=== PATIENT | male | born 1975 | race Caucasian/White ===

== ENCOUNTER 2018-11-05 11:03 | Emergency (ER) | payer BC ==
[2018-11-05 11:13] VITALS: BMI 25.0
[2018-11-05] MEDS ORDERED: ACETAMINOPHEN 1000 MG/100 ML VIAL (NON FORMULARY) IVPB ONE (11:45)
--- NOTE | 2018-11-05 11:55 | PDOC ---
History of Present Illness - General Chief Complaint: Respiratory Stated Complaint: CHEST PAIN Time Seen by Provider: 11/05/18 11:34 History Source: Patient Exam Limitations: Clinical Condition - History of Present Illness Initial Comments: 11/05/18 11:49 Patient with no significant past medication present with complaint of point tenderness to left lower breast area which has been persistent since yesterday and has not improved with Motrin. Patient reported having cough, runny nose and nasal congestion 5 days ago. Patient reported increased pain to left chest area with cough or deep breathing. Patient reported he feels he might have had a flu 3 days ago. Patient denies nausea, vomiting, headache, radiation of pain, dizziness, sweats, fever or chills. Patient denies any other symptoms Timing/Duration: 24 hours Past History - Past Medical History Allergies/Adverse Reactions: Allergies Allergy/AdvReac Type Severity Reaction Status Date / Time No Known Allergies Allergy Verified 11/05/18 11:08 Home Medications: Ambulatory Orders Benzonatate [Tessalon Pearls -] 100 mg PO TID PRN #21 capsule 11/05/18 Ipratropium Neches 2 spray NS BID PRN #1 spray 11/05/18 Prednisone [Deltasone] 20 mg PO BID 4 Days #8 tablet 11/05/18 COPD: No - Suicide/Smoking/Psychosocial Hx Smoking History: Never smoked Hx Alcohol Use: No Drug/Substance Use Hx: No Review of Systems - Review of Systems Able to Perform ROS?: Yes Is the patient limited Spanish proficient: No Constitutional: No: Chills, Fever, Malaise, Weakness HEENTM: Yes: Symptoms Reported, See HPI, Nose Congestion. No: Eye Pain, Blurred Vision, Tearing, Recent change in vision, Double Vision, Cataracts, Ear Pain, Ocular Prothesis, Ear Discharge, Nose Pain, Tinnitus, Nose Bleeding, Hearing Loss, Throat Pain, Throat Swelling, Mouth Pain, Dental Problems, Difficulty Swallowing, Mouth Swelling, Other Respiratory: Yes: Symptoms reported, See HPI, Cough (intermittent). No: Orthopnea, Shortness of Breath, SOB with Exertion, SOB at Rest, Stridor, Wheezing, Productive cough, Hemoptysis, Other Cardiac (ROS): Yes: Symptoms Reported, See HPI, Chest Pain (point tenderness to touch to left below breastline). No: Edema, Irregular Heart Rate, Lightheadedness, Palpitations, Syncope, Chest Tightness, Other ABD/GI: No: Symptoms Reported, See HPI, Abdominal Distended, Abd. Pain w/ defecation, Blood Streaked Bowels, Constipated, Diarrhea, Difficulty Swallowing , Nausea, Poor Appetite, Poor Fluid Intake, Rectal Bleeding, Vomiting, Indigestion, Abdominal cramping, Tarry Stools, Other Neurological: No: Headache, Dizziness All Other Systems: Reviewed and Negative *Physical Exam - Vital Signs Last Vital Signs Temp Pulse Resp BP Pulse Ox 98.5 F 65 18 140/71 99 11/05/18 11:08 11/05/18 11:08 11/05/18 11:08 11/05/18 11:08 11/05/18 11:08 - Physical Exam Comments: 11/05/18 11:52 GENERAL: Well developed, well nourished. Awake and alert. No acute distress. HEENT: Normocephalic, atraumatic. PERRLA, EOMI. No conjunctival pallor. Sclera are non-icteric. Moist mucous membranes. Oropharynx is clear. NECK: Supple. Full ROM. CARDIOVASCULAR: moderate point tenderness to left intercostal space. Regular rate and rhythm. No murmurs, rubs, or gallops. Distal pulses are 2+ and symmetric. PULMONARY: No evidence of respiratory distress. Lungs clear to auscultation bilaterally. No wheezing, rales or rhonchi. ABDOMINAL: Soft. Non-tender. Non-distended. No rebound or guarding. No organomegaly. Normoactive bowel sounds. MUSCULOSKELETAL : moderate point tenderness to left intercostal space Normal range of motion at all joints. EXTREMITIES: No cyanosis. No clubbing. No edema. No calf tenderness. SKIN: Warm and dry. Normal capillary refill. No rashes. No jaundice. NEUROLOGICAL: Alert, awake, appropriate. Gait is normal without ataxia. PSYCHIATRIC: Cooperative. Good eye contact. Appropriate mood General Appearance: Yes: Nourished, Appropriately Dressed. No: Apparent Distress Moderate Sedation - Procedure Monitoring Vital Signs: Procedure Monitoring Vital Signs Temperature 98.5 F 11/05/18 11:08 Pulse Rate 65 11/05/18 11:08 Respiratory Rate 18 11/05/18 11:08 Blood Pressure 140/71 11/05/18 11:08 O2 Sat by Pulse Oximetry (%) 99 11/05/18 11:08 ED Treatment Course - LABORATORY CBC & Chemistry Diagram: 11/05/18 12:40 11/05/18 12:40 - RADIOLOGY Radiology Studies Ordered: Category Date Time Status CHEST PA & LAT [RAD] Stat Radiology 11/05/18 11:45 Ordered Medical Decision Making - Medical Decision Making 11/05/18 11:53 Patient with no significant past medication present with complaint of point tenderness to left 5th intercostal area for 24 hours with no other symptoms now. Patient reported had flu-like symptoms few days ago which has resolved. Clinical exam unremarkable except point tenderness to left fifth intercostal space. EKG shows normal sinus rhythm. CBC, CMP, cardiac profile ordered. Chest x -ray ordered. Treat based on lab and imaging results 11/05/18 11:55 11/05/18 13:42 CMP,CBC shows no abnormality. Tropinins negative. x-rays shows no acute pathology. patient with no pain after Tylenol. symptoms likely costochondral pain. Patient with intermittent cough. patient stable for discharge on NSAIDS and cough medication as needed with strict follow-up *DC/Admit/Observation/Transfer Diagnosis at time of Disposition: Cough, Costochondral chest pain URI (upper respiratory infection) Qualifiers: URI type: unspecified URI Qualified Code(s): J06.9 - Acute upper respiratory infection, unspecified - Discharge Dispostion Disposition: HOME Condition at time of disposition: Stable Decision to Admit order: No - Prescriptions Prescriptions: Benzonatate [Tessalon Pearls -] 100 mg PO TID PRN #21 capsule PRN Reason: Cough Ipratropium Neches 2 spray NS BID PRN #1 spray PRN Reason: nasal congestion Prednisone [Deltasone] 20 mg PO BID 4 Days #8 tablet - Referrals Referrals: Sunday Hilario [Primary Care Provider] - - Patient Instructions Printed Discharge Instructions: DI for Costochondritis Additional Instructions: take medication as prescribed. come back to ER if worsening chest pains, dizziness, shortness of breathe, severe headache. follow-up with primary care as needed - Post Discharge Activity
[2018-11-05] MEDS ORDERED: ACETAMINOPHEN INJECTION 100 ML IVPB ONE (12:44)
[2018-11-05 13:08] LABS: BASO % 0.5 % (0-2.0); EOS % 1.2 % (0-4.5); HEMATOCRIT 42.4 % (35.4-49); HEMOGLOBIN 14.9 GM/dL (11.7-16.9); LYMPH % 15.1 % (8-40); MCH 31.5 pg (25.7-33.7); MCHC 35.2 g/dl (32.0-35.9); MEAN CELL VOLUME 89.3 fl (80-96); MEAN PLT VOLUME 9.7 fl (7.5-11.1); MONO % 7.3 % (3.8-10.2); NEUT % 75.9 % (42.8-82.8); PLATELET COUNT 228 K/MM3 (134-434); RBC 4.75 M/mm3 (4.00-5.60); RDW 13.5 % (11.9-15.9); WHITE BLOOD COUNT 8.3 K/mm3 (4.0-10.0)
[2018-11-05 13:24] LABS: ALBUMIN 4.1 g/dl (3.4-5.0); ALK PHOS 116 U/L (45-117); ANION GAP 8 MMOL/L (8-16); BILIRUBIN,TOTAL 0.8 mg/dL (0.2-1); BLOOD UREA NITROGEN 15 mg/dL (7-18); CALCIUM 9.2 mg/dL (8.5-10.1); CHLORIDE 106 mmol/L (98-107); CO2 26 mmol/L (21-32); CREATININE 0.9 mg/dL (0.55-1.3); GLUCOSE,RANDOM 85 mg/dL (74-106); POTASSIUM 4.3 mmol/L (3.5-5.1); SGOT/AST 20 U/L (15-37); SGPT/ALT 30 U/L (13-61); SODIUM 140 mmol/L (136-145); TOT PROT 7.6 g/dl (6.4-8.2)
[2018-11-05 14:20] VITALS: BP 106/58; PULSE 61; TEMP 97.8
--- NOTE | 2018-11-05 21:18 | EKG ---
Test Reason : Blood Pressure : / mmHG Vent. Rate : 066 BPM Atrial Rate : 066 BPM P-R Int : 116 ms QRS Dur : 082 ms QT Int : 394 ms P-R-T Axes : 049 049 041 degrees QTc Int : 413 ms NORMAL SINUS RHYTHM WITH SINUS ARRHYTHMIA NORMAL ECG NO PREVIOUS ECGS AVAILABLE Confirmed by ADRIENNE COBURN, COOPER ([id number]) on 11/05/2018 9:17:39 PM Referred By: Confirmed By:COOPER DELEON MD
== END 2018-11-05 14:05 | disposition home or self-care (01) ==
LOC: JER 11:03
PROC: 3E033NZ Introduction of Analgesics, Hypnotics, Sedatives into Peripheral Vein, Percutaneous Approach (ICD-10-PCS; principal; 2018-11-05)
DX: J06.9 Acute upper respiratory infection, unspecified (principal); M94.0 Chondrocostal junction syndrome [Tietze]
CPT/HCPCS: 36415; 71046-TC-FY; 80053; 82550; 82553; 84484; 85025; 93005; 93010; 99282-25; J0131